=== PATIENT | female | born 1930 | race Caucasian/White ===

== ENCOUNTER 2016-05-17 13:24 | Outpatient (CLI) | payer OTHER, BC ==
[~2016-05-17 13:24] MED LIST: ACYCLOVIR200 MG PO; CALCIUM CARBON500 MG PO; FISH OIL1000 M1 PO; GLUCOSAMINE1500 COM PO; KLOR-CON 1010 MEQ PO; LEVOTHYROXINE125 MCG PO; MULTIVITAMIN1 TAB PO; OCUVITE PO; SIMVASTATIN20 MG PO; VITAMIN D-31000 UNIT PO
== END 2016-05-17 23:00 ==
LOC: LAB SRH 13:24
DX: I34.0 Nonrheumatic mitral (valve) insufficiency (principal)
CPT/HCPCS: 90065; 90074

== ENCOUNTER 2016-05-19 13:00 | Outpatient (CLI) | payer OTHER, BC | END 2016-05-19 23:00 | LOC: LAB SRH 13:00 | DX: I34.0 Nonrheumatic mitral (valve) insufficiency (principal) | CPT/HCPCS: 90065; 90074 ==

== ENCOUNTER 2016-08-17 09:38 | Outpatient (CLI) | payer OTHER, BC ==
--- NOTE | 2016-08-17 10:42 | DIAGNOSTIC IMAGING REPORT ---
PROCEDURE: CT SOFT TISSUE NECK WITH CONT INDICATION: Follow-up CLL. TECHNIQUE: 75 ml of Isovue 300 injected intravenously and axial images were obtained from the skull base through the upper mediastinum with sagittal and coronal reformations. In addition, angled axial oblique images were obtained ( avoiding dental hardware). COMPARISON: CT soft tissue 90 12/21/2015. FINDINGS: There are no enlarged cervical or supraclavicular lymph nodes. Normal parotid and submandibular glands. Thyroid gland not visualized. Mild right and moderate left carotid bifurcation atherosclerosis. Severe emphysema. Normal airway. Visualized sinuses and mastoids are clear. Moderate degenerative changes of the spine. IMPRESSION: 1. No evidence of cervical or supraclavicular adenopathy. All CT scans at this facility use dose modulation, iterative reconstruction, and/or weight-based dosing when appropriate to reduce radiation dose to as low as reasonably achievable.
--- NOTE | 2016-08-17 11:26 | DIAGNOSTIC IMAGING REPORT ---
PROCEDURE: CT THORAX ABD PELVIS W/CONT INDICATION: F/U CLL. TECHNIQUE: 75 ml of Isovue 300 injected intravenously and axial images were obtained of the entire thorax, abdomen, and pelvis with sagittal and coronal reformations. COMPARISON: CTA chest/abdomen/pelvis 12/21/2015 and 04/06/2014.. FINDINGS: THORAX: There is no mediastinal, hilar or axillary adenopathy. Severe emphysema with biapical and lingular scarring. 3.5 mm right lower lobe nodule ( image 34) , unchanged from 04/06/2014, consistent with a granuloma/post inflammatory. No effusion. Moderate atherosclerosis of the aorta. Severe coronary atherosclerosis. Mild progression of moderate cardiomegaly. Moderate degenerative changes of the spine. Left-sided Port-A-Cath removed. ABDOMEN: There is no retroperitoneal or mesenteric adenopathy. Cholecystectomy. Liver, pancreas, spleen and adrenal glands are normal. Pancreatic vascular calcifications. Bilateral renal cysts. Severe atherosclerosis with stable 3 cm infrarenal abdominal aortic aneurysm. Stool throughout the large bowel. Small hiatal hernia. Moderate degenerative changes of the spine. PELVIS: No pelvic or inguinal adenopathy. 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 Mild sigmoid diverticulosis. Appendix not visualized. Calcified fibroids. Slight progression of 3.8 cm right adnexal cyst, previously 3.0 cm. No free fluid or inflammatory changes. Stable right S1 Tarlov cyst. IMPRESSION: 1. No evidence of chest, abdominal, pelvic or inguinal adenopathy 2. Status post left-sided Port-A-Cath removal 3. Severe emphysema 4. Cholecystectomy 5. Stable 3 cm infrarenal abdominal aortic aneurysm 6. Slight progression of 3.0 cm right adnexal cyst (previously 3.0 cm). All CT scans at this facility use dose modulation, iterative reconstruction, and/or weight-based dosing when appropriate to reduce radiation dose to as low as reasonably achievable.
== END 2016-08-17 23:00 ==
LOC: CT SRH 09:38
DX: C91.10 Chronic lymphocytic leukemia of B-cell type not having achieved remission (principal); J43.9 Emphysema, unspecified; I71.4 Abdominal aortic aneurysm, without rupture; N83.8 Other noninflammatory disorders of ovary, fallopian tube and broad ligament; Z90.49 Acquired absence of other specified parts of digestive tract